=== PATIENT | female | born 1935 | race Two or more races ===

== ENCOUNTER 2022-05-15 11:45 | Emergency (ER) | payer MEDICARE, BC ==
[~2022-05-15] VITALS: Ht 149.9 cm; Wt 52.2 kg
--- NOTE | 2022-05-15 11:56 | NUR ---
PT BIB FROM HOME TO ER BED 01 PER REPORT, PT HAD SYNCOPAL EPISODE AT THE KITCHEN AND CALL BECAUSE PATIENT CANNOT STAND UP. PER EMS PT WAS HYPOTENSIVE IN THE FIELD. PLACED ON MONITOR. VSS TRADING MANAGER. PT IS VERBALLY RESPONSIVE. AWAITING MD CARRANZA.
--- NOTE | 2022-05-15 12:28 | NUR ---
IV LINE STARTED BLOOD DRAWN AND SENT TO LAB.
--- NOTE | 2022-05-15 12:39 | NUR ---
PT TO RADIOLOGY FOR HEAD CT SCAN VIA [facility].
[2022-05-15 12:44] LABS: BASOPHILS % (AUTO) 0.5 % (0.0-2.0); HEMATOCRIT 40 % (33-45); HEMOGLOBIN 12.5 g/dL (11.5-14.8); LYMPHOCYTES % (AUTO) 13.7 % (20.0-44.0); MEAN CORPUSCULAR HGB CONC 32 g/dl (31.0-36.0); MEAN CORPUSCULAR VOLUME 85 fL (82-100); MONOCYTES # (AUTO) 0.5 K/uL (0.1-1.30); MONOCYTES % (AUTO) 6.8 % (2.0-12.0); NEUTROPHILS # (AUTO) 5.6 K/uL (1.8-8.9); PLATELET COUNT (AUTO) 168 K/uL (150-450); RED BLOOD CELL COUNT(AUTO) 4.66 MIL/uL (4.0-5.2); WHITE BLOOD COUNT (AUTO) 7.2 K/uL (4.3-11.0)
[2022-05-15 12:53] LABS: CALCIUM, SERUM 9.8 mg/dL (8.5-10.1); CARBON DIOXIDE 34 mmol/L (21-32); CHLORIDE 105 mmol/L (98-107); GLUCOSE 101 mg/dL (74-106); POTASSIUM 4.3 mmol/L (3.5-5.1); SODIUM SERUM 142 mmol/L (136-145); UREA NITROGEN, BLOOD 21 mg/dL (7-18)
[2022-05-15 13:03] LABS: ALANINE AMINOTRANSFERASE 15 U/L (12-78); ALBUMIN 3.3 g/dL (3.4-5.0); ALKALINE PHOSPHATASE 59 U/L (46-116); ASPARTATE AMINOTRANSFERASE 24 U/L (15-37); BILIRUBIN,DIRECT 0.1 mg/dL (0.0-0.2); BILIRUBIN,TOTAL 0.3 mg/dL (0.2-1.0); TOTAL PROTEIN, SERUM 7.6 g/dL (6.4-8.2)
--- NOTE | 2022-05-15 13:12 | NUR ---
MOVE SHEET SUBMITTED.
[2022-05-15] MEDS ORDERED: AZIT250T13 PO (14:55)
[2022-05-15 15:17] VITALS: BP 155/74
== END 2022-05-15 15:18 | disposition home or self-care (01) ==
LOC: ER 11:48
DX: J18.9 Pneumonia, unspecified organism (principal); Z20.822 Contact with and (suspected) exposure to COVID-19; R29.6 Repeated falls; F03.90 Unspecified dementia, unspecified severity, without behavioral disturbance, psychotic disturbance, mood disturbance, and anxiety
CPT/HCPCS: 36415; 70450-TC; 71045-TC; 80048-TC; 80076-TC; 83605-TC; 84484-TC; 85025-TC; 85730-TC; 87040-TC; 87081-TC; C9803